=== PATIENT | male | born 1995 | race Caucasian/White ===

== ENCOUNTER → 2018-10-19 | Outpatient (CLI) | payer OTHER ==
[~2018-10-19] MED LIST: GADOBUTROL 7.5 MMOL/7.5 ML PFS ONE
== END | disposition home or self-care (01) ==
LOC: CFH 12:22
PROVIDERS: ATTEND Psychiatry & Neurology Neurology
DX: H46.8 Other optic neuritis (principal); J32.0 Chronic maxillary sinusitis
CPT/HCPCS: 70543; A9585